=== PATIENT | male | born 1995 | race American Indian/Alaskan Native ===

== ENCOUNTER 2021-05-12 19:40 | Emergency (ER) | payer MEDICAID ==
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
[2021-05-12 20:35] LABS: Basophils # (Auto) 0.1 K/mm3 (0.0-0.1); Basophils % (Auto) 0.7 % (0.0-1.8); Eosinophils % (Auto) 0.1 % (0.0-4.3); Hematocrit 40.9 % (35.5-45.6); Hemoglobin 13.6 gm/dl (11.8-15.2); Lymphocytes # (Auto) 2.2 K/mm3 (1.2-5.4); Lymphocytes % (Auto) 18.1 % (13.4-35.0); Mean Corpuscular HGB Conc 33 % (32-34); Mean Corpuscular Volume 93 fl (84-94); Monocytes # (Auto) 0.9 K/mm3 (0.0-0.8); Platelet Count 207 K/mm3 (140-440); Red Blood Count 4.39 M/mm3 (3.65-5.03); Red Cell Distribution Width 13.6 % (13.2-15.2)
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
[2021-05-12 20:55] LABS: Blood Urea Nitrogen 18 mg/dL (9-20); Calcium 9.5 mg/dL (8.4-10.2); Hemolysis Index 11
[2021-05-12 21:00] LABS: BUN/Creatinine Ratio 30
[2021-05-12] MEDS ORDERED: HYDROcodone/ACETAMINOPHEN 5-325 MG TAB PO ONE (21:00)
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
--- NOTE | 2021-05-13 13:30 | Emergency Department Report ---
Blank Doc - Documentation Documentation: Case management disposition is currently pending. Patient is resting and in no distress.
[2021-05-14] MEDS ORDERED: ACETAMINOPHEN 325 MG TAB PO PRN (11:13)
[2021-05-14] MEDS ORDERED: LORazepam 2 MG/ML VIAL IM PRN (11:13)
[2021-05-14] MEDS ORDERED: diphenhydrAMINE 25 MG CAP PO PRN (11:13)
[2021-05-14] MEDS ORDERED: ONDANSETRON 4 MG ODT TAB PO PRN (11:13)
--- NOTE | 2021-05-14 11:15 | Event Note ---
Date: 05/14/21 The patient was evaluated in the emergency department for symptoms described in the history of present illness. He/she was evaluated in the context of the global COVID-19 pandemic, which necessitated consideration that the patient might be at risk for infection with the virus that causes COVID-19. Institutional protocols and algorithms that pertain to the evaluation of patients at risk for COVID-19 are in a state of rapid change based on information released by regulatory bodies including the CDC and federal and state organizations. These policies and algorithms were followed during the patient's care in the emergency department. Please note that these policies, procedures and recommendations changed on a rapid basis. Laboratory studies, radiology studies, ER documentation and case management documentation reviewed and appreciated. The patient appears to have a history of developmental delay. He has prior documentation in his chart from previous evaluations earlier on during this particular ER stay which have indicated that he appears to be developmentally delayed. He had a CT scan of his brain and cervical spine which were negative for acute findings. His initial laboratory studies are unremarkable. Nursing team endorses that patient is able to ambulate, and make his needs known, and ate breakfast without difficulty. However, he appears to have poor baseline functionality. Therefore, he is not suitable to be discharged on his own recognizance. Case management has been involved, to assist in acquisition and placement of safe discharge. When I evaluate the patient he denies physical pain. He tells me his name is Carlos. However, he appears to be confused, which as per review of his chart, appears to be his baseline. The patient does not appear to have an emergent medical condition present at this time which would preclude discharge. Case management input is reviewed and appreciated. As needed medications ordered. Radiology studies are appreciated. Vital Signs 05/12/21 05/12/21 05/13/21 19:47 20:47 21:07 Temperature 98.0 F 98.0 F Pulse Rate 80 83 73 Respiratory 18 18 16 Rate Blood Pressure 147/102 Blood Pressure 140/94 135/98 [Left] O2 Sat by Pulse 99 99 99 Oximetry Lab Results 05/12/21 05/12/21 Range/Units 20:17 20:17 WBC 12.4 H (4.5-11.0) K/mm3 RBC 4.39 (3.65-5.03) M/mm3 Hgb 13.6 (11.8-15.2) gm/dl Hct 40.9 (35.5-45.6) % MCV 93 (84-94) fl MCH 31 (28-32) pg MCHC 33 (32-34) % RDW 13.6 (13.2-15.2) % Plt Count 207 (140-440) K/mm3 Lymph % (Auto) 18.1 (13.4-35.0) % Larue % (Auto) 7.0 (0.0-7.3) % Eos % (Auto) 0.1 (0.0-4.3) % Baso % (Auto) 0.7 (0.0-1.8) % Lymph # (Auto) 2.2 (1.2-5.4) K/mm3 Larue # (Auto) 0.9 H (0.0-0.8) K/mm3 Eos # (Auto) 0.0 (0.0-0.4) K/mm3 Baso # (Auto) 0.1 (0.0-0.1) K/mm3 Seg Neutrophils % 74.1 H (40.0-70.0) % Seg Neutrophils # 9.2 H (1.8-7.7) K/mm3 Sodium 142 (137-145) mmol/L Potassium 4.0 (3.6-5.0) mmol/L Chloride 105.4 (98-107) mmol/L Carbon Dioxide 23 (22-30) mmol/L Anion Gap 18 mmol/L BUN 18 (9-20) mg/dL Creatinine 0.6 L (0.8-1.3) mg/dL Estimated GFR > 60 ml/min BUN/Creatinine Ratio 30 % Glucose 83 (75-100) mg/dL Calcium 9.5 (8.4-10.2) mg/dL
[2021-05-15] MEDS ORDERED: levETIRAcetam 1000 MG/NS 0.75% 1,000 MG/100 ML BAG IV ONE (01:23)
[2021-05-15] MEDS ORDERED: LACOSAMIDE 100 MG in SODIUM CHLORIDE 0.9% 100 ML IV SCH (02:00)
[2021-05-15 06:50] VITALS: BP 121/82
[2021-05-15] MEDS ORDERED: levETIRAcetam 500 MG TAB PO SCH (10:00)
--- NOTE | 2021-05-15 11:09 | Emergency Department Report ---
Blank Doc - Documentation Documentation: Patient has been medically cleared. Case management did find disposition for the patient. His mother is coming to pick him up. He was subsequently discharged.
== END 2021-05-15 11:40 | disposition home or self-care (01) ==
LOC: EDBD → ED 19:40
DX: S06.9X9A Unspecified intracranial injury with loss of consciousness of unspecified duration, initial encounter (principal); M79.604 Pain in right leg; M54.2 Cervicalgia; Y93.89 Activity, other specified; Y92.89 Other specified places as the place of occurrence of the external cause; Y99.8 Other external cause status
CPT/HCPCS: 36415; 70450; 72125; 73590; 80048; 85025; 96365; 96372; 96375; 99284; C9254; J1953; J2060

== ENCOUNTER 2021-05-28 10:38 | Emergency (ER) | payer MEDICAID ==
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
[2021-05-28] MEDS ORDERED: levETIRAcetam 1,000 MG in SODIUM CHLORIDE 0.9% 100 ML IV ONE (11:38)
[2021-05-28] MEDS ORDERED: levETIRAcetam 1000 MG/NS 0.75% 1,000 MG/100 ML BAG IV ONE (12:00)
[2021-05-28 13:27] LABS: Basophils % (Auto) 0.4 % (0.0-1.8); Eosinophils % (Auto) 0.1 % (0.0-4.3); Hematocrit 36.3 % (35.5-45.6); Hemoglobin 11.9 gm/dl (11.8-15.2); Lymphocytes # (Auto) 0.7 K/mm3 (1.2-5.4); Lymphocytes % (Auto) 5.6 % (13.4-35.0); Mean Corpuscular HGB Conc 33 % (32-34); Mean Corpuscular Volume 93 fl (84-94); Monocytes # (Auto) 0.5 K/mm3 (0.0-0.8); Monocytes % (Auto) 4.2 % (0.0-7.3); Platelet Count 179 K/mm3 (140-440); Red Blood Count 3.93 M/mm3 (3.65-5.03)
[2021-05-28 13:31] LABS: Blood Urea Nitrogen TNR mg/dL (9-20)
[2021-05-28 13:32] LABS: BUN/Creatinine Ratio TNR; Calcium TNR mg/dL (8.4-10.2); Hemolysis Index TNR
[2021-05-28 14:58] LABS: Blood Urea Nitrogen 14 mg/dL (9-20); Calcium 8.5 mg/dL (8.4-10.2); Hemolysis Index 15
[2021-05-28 15:12] LABS: BUN/Creatinine Ratio 28
[2021-05-28 18:17] VITALS: BP 120/76
== END 2021-05-28 18:17 | disposition home or self-care (01) ==
LOC: ED 10:38
DX: G40.909 Epilepsy, unspecified, not intractable, without status epilepticus (principal)
CPT/HCPCS: 36415; 80048; 85025; 96365; 99284; J1953

== ENCOUNTER 2021-07-24 23:50 | Emergency (ER) | payer MEDICAID ==
[2021-07-25] MEDS ORDERED: LORazepam 2 MG/ML VIAL IM ONE (00:05)
[2021-07-25] MEDS ORDERED: LORazepam 2 MG/ML VIAL ONE (00:06)
[2021-07-25] MEDS ORDERED: levETIRAcetam 1000 MG/NS 0.75% 1,000 MG/100 ML BAG IV ONE (00:15)
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
[2021-07-25 01:07] LABS: BUN/Creatinine Ratio 9; Blood Urea Nitrogen 7 mg/dL (9-20); Calcium 9.3 mg/dL (8.4-10.2); Hemolysis Index 12
[2021-07-25 01:14] LABS: Basophils # (Auto) 0.1 K/mm3 (0.0-0.1); Basophils % (Auto) 0.4 % (0.0-1.8); Lymphocytes # (Auto) 2.1 K/mm3 (1.2-5.4); Mean Corpuscular HGB Conc 30 % (32-34); Mean Corpuscular Volume 100 fl (84-94); Monocytes # (Auto) 0.8 K/mm3 (0.0-0.8); Monocytes % (Auto) 5.4 % (0.0-7.3); Platelet Count 243 K/mm3 (140-440); Red Blood Count 4.51 M/mm3 (3.65-5.03); Red Cell Distribution Width 14.3 % (13.2-15.2)
[2021-07-25 01:18] LABS: Hematocrit 44.8 % (35.5-45.6); Hemoglobin 13.6 gm/dl (11.8-15.2)
[2021-07-25] MEDS ORDERED: SODIUM CHLORIDE 0.9% 1000 ML 1,000 ML IV ONE (01:43)
[2021-07-25 06:44] VITALS: BP 123/75
== END 2021-07-25 11:27 | disposition home or self-care (01) ==
LOC: ED 23:50
DX: R56.9 Unspecified convulsions (principal)
CPT/HCPCS: 36415; 80048; 85025; 96361; 96365; 96372; 99284; J1953; J2060; J7030; Q0162